=== PATIENT | female | born 2000 | race Caucasian/White ===

== ENCOUNTER 2021-12-22 | Emergency (ER) | payer OTHER ==
[~2021-12-22] VITALS: Ht 162.6 cm; Wt 70.3 kg
[2021-12-22] MEDS ORDERED: MAG HYDROX/AL HYDROX/SIMETH 30 ML LIQUID UDC PO ONE (01:30)
[2021-12-22] MEDS ORDERED: LIDOCAINE VISCUS 2% 15 ML UDC MM ONE (01:30)
[2021-12-22] MEDS ORDERED: DICYCLOMINE HCL LIQ 10 MG/5 ML UDC PO ONE (01:30)
[2021-12-22] MEDS ORDERED: MAG HYDROX/AL HYDROX/SIMETH 30 ML LIQUID UDC ONE (01:32)
[2021-12-22] MEDS ORDERED: LIDOCAINE VISCUS 2% 15 ML UDC ONE (01:32)
[2021-12-22] MEDS ORDERED: DICYCLOMINE HCL LIQ 10 MG/5 ML UDC ONE (01:32)
--- NOTE | 2021-12-22 01:37 | NUR ---
Patient is a/ox4, NAD noted. Patient is able to walk to the restroom with steady gait
[2021-12-22] MEDS ORDERED: ONDANSETRON ODT 4 MG TAB.RAPDIS SL ONE ×2 (01:45→02:30)
[2021-12-22] MEDS ORDERED: HYDROCODONE/APAP 10-325 MG TABLET PO ONE (01:45)
[2021-12-22] MEDS ORDERED: ONDANSETRON ODT 4 MG TAB.RAPDIS ONE ×2 (01:50→02:28)
[2021-12-22] MEDS ORDERED: HYDROCODONE/APAP 10-325 MG TABLET ONE (01:50)
[2021-12-22] MEDS ORDERED: HYDROMORPHONE HCL 2 MG TABLET ONE (02:28)
[2021-12-22] MEDS ORDERED: HYDROMORPHONE HCL 2 MG TABLET PO ONE (02:30)
[2021-12-22 02:56] LABS: HEMATOCRIT 33.5 % (31.2-41.9); MEAN CORPUSCULAR HEMOGLOBIN 32.5 uug (24.7-32.8); MEAN CORPUSCULAR VOLUME 93.2 fL (75.5-95.3); PLATELET COUNT (AUTO) 169 K/uL (179-408)
[2021-12-22 03:06] LABS: BILIRUBIN,TOTAL 0.4 mg/dL (0.2-1.0); CREATININE 0.6 mg/dL (0.6-1.3); POTASSIUM 4.1 mmol/L (3.5-5.1); TOTAL PROTEIN, SERUM 6.8 g/dL (6.4-8.2)
[2021-12-22] MEDS ORDERED: ONDA4TAB5 PO (03:38)
[2021-12-22] MEDS ORDERED: HYDR-4209 PO (03:38)
--- NOTE | 2021-12-22 03:43 | NUR ---
Patient discharged to home in stable condition. Written and verbal after care instructions given. Patient verbalizes understanding of instructions. Stressed follow up or return to ER for worsening s/s. Patient is a/ox4, NAD noted. Patient is able to walk with steady gait.
[2021-12-22 04:03] VITALS: BP 128/61
== END 2021-12-22 04:03 | disposition home or self-care (01) ==
LOC: ER 00:12
DX: R10.13 Epigastric pain (principal); Z87.440 Personal history of urinary (tract) infections; Z90.49 Acquired absence of other specified parts of digestive tract; Z86.39 Personal history of other endocrine, nutritional and metabolic disease
CPT/HCPCS: 36415; 83690; 85025; J7040; Q0162